=== PATIENT | female | born 1945 | race Caucasian/White ===

== ENCOUNTER 2017-06-29 10:07 | Day surgery (SDC) | payer MEDICARE, OTHER ==
[2017-06-28 16:43] VITALS: BMI 25.8
[2017-06-29] MEDS ORDERED: Fentanyl 100 MCG/2 ML VIAL ONE (10:20)
[2017-06-29] MEDS ORDERED: Propofol 1,000 MG/100 ML VIAL IV ONE (10:20)
--- NOTE | 2017-06-29 14:44 | MRI ---
MRI LUMBAR SPINE WITHOUT CONTRAST: History: Lumbar radiculopathy. Left leg pain. Low back pain x 20 years. Comparison: None. Technique: MRI of the lumbar spine is performed without intravenous gadolinium administration. Multi sequential, multiplanar imaging performed. FINDINGS: There is intrinsic T1 and T2 hyperintensity at the T11 level compatible with a focal area of fat. Th ere are type I and type II Modic changes at the L1-2 level. There are type II Modic changes at the L 4-5 level. There is evidence of a combination of type I and type II Modic changes at the L2-3 level. 3.9 mm of retrolisthesis of L1 upon L2. Conus medullaris terminates at the superior endplate of L1. There is appropriate signal intensity of the psoas muscles and solid organs. T12-L1: Disc desiccation without significant loss of disc space height loss. No significant posterio r disc abnormality. Mild bilateral foraminal narrowing. L1-2: Disc desiccation with severe loss of disc space height. No significant posterior disc abnormal ity. No significant central canal stenosis. Severe bilateral neural foraminal narrowing. L2-3: Disc desiccation with moderate loss of disc space height. Generalized disc bulge results in mi ld central canal stenosis. Mild narrowing of the right subarticular zone. Disc material abuts but do es not obscure the traversing right L3 nerve root. The left subarticular zone is unremarkable. Moder ate right foraminal narrowing. Left neural foramen is patent. L3-4: Disc desiccation with mild loss of disc space height. Generalized disc bulge, ligamentum flavu m thickening and facet hypertrophy results in moderate to severe central canal stenosis. There is na rrowing of the right subarticular zone with near complete obscuration traversing right L4 nerve root . Small amount of fluid in the right facet joint. Moderate bilateral neural foraminal narrowing. L4-5: Disc desiccation without significant loss of disc space height. No significant posterior disc abnormality. Mild to moderate bilateral neural foraminal narrowing. L5-S1: Adequate disc hydration. No significant central canal stenosis. Neural foramina are patent. 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 POS: [facility]
== END 2017-06-29 12:30 | disposition home or self-care (01) ==
LOC: SDC/OP 10:07
PROVIDERS: ATTEND Neurological Surgery
DX: M54.16 Radiculopathy, lumbar region (principal); I10 Essential (primary) hypertension; Z88.2 Allergy status to sulfonamides; Z96.641 Presence of right artificial hip joint
CPT/HCPCS: 72148; J2704; J3010

== ENCOUNTER 2018-02-09 13:16 | Outpatient (CLI) | payer MEDICARE | END 2018-02-09 13:17 | disposition home or self-care (01) | LOC: BICMAMMO 13:16 | PROVIDERS: ATTEND Family Medicine | DX: Z12.31 Encounter for screening mammogram for malignant neoplasm of breast (principal); R92.1 Mammographic calcification found on diagnostic imaging of breast | CPT/HCPCS: 77063; 77067 ==

== ENCOUNTER 2024-08-29 12:47 | Outpatient (CLI) | payer MEDICARE | END 2024-08-29 12:48 | disposition home or self-care (01) | LOC: BICRAD 12:47 | PROVIDERS: ATTEND Family Medicine | DX: M25.552 Pain in left hip (principal); M54.50 Low back pain, unspecified; M41.35 Thoracogenic scoliosis, thoracolumbar region; M47.816 Spondylosis without myelopathy or radiculopathy, lumbar region | CPT/HCPCS: 72100 ==

== ENCOUNTER 2024-09-28 13:10 | Outpatient (CLI) | payer MEDICARE | END 2024-09-28 13:11 | disposition home or self-care (01) | LOC: BICMRI 13:10 | PROVIDERS: ATTEND Student in an Organized Health Care Education/Training Program | DX: M47.26 Other spondylosis with radiculopathy, lumbar region (principal) | CPT/HCPCS: 72148 ==

== ENCOUNTER 2024-10-27 13:51 | Outpatient (CLI) | payer MEDICARE | END 2024-10-27 13:52 | disposition home or self-care (01) | LOC: BICMRI 13:51 | PROVIDERS: ATTEND Orthopaedic Surgery | DX: M25.552 Pain in left hip (principal); M25.452 Effusion, left hip; R93.7 Abnormal findings on diagnostic imaging of other parts of musculoskeletal system; R60.0 Localized edema; S73.192A Other sprain of left hip, initial encounter; M24.152 Other articular cartilage disorders, left hip ==